=== PATIENT | female | born 2000 | race Two or more races ===

== ENCOUNTER 2025-07-19 23:07 | Emergency (ER) | payer MEDICAID, SELFPAY ==
[2025-07-19 23:19] VITALS: BP 110/75; PULSE 80; RESP 18; TEMP 36.4; O2SAT 99; BMI 23.6
[2025-07-19 23:36] VITALS: PULSE 88; RESP 18; O2SAT 98
--- NOTE | 2025-07-20 01:12 | EDNOTE_ITS ---
ED Wound/Laceration-RME/HPI General Chief Complaint: Wound/Laceration Stated Complaint: FALL Time Seen by Provider: 07/19/25 23:31 Arrival date/time: 07/19/25 23:07 RME / HPI RME / HPI narrative: DR. MADDOX MAIN ED EVALUATION: Patient presents after reportedly drinking alcohol throughout the day had apparently tripped and fell creating lower chin laceration. Denies malocclusion, although does complain of mild jaw pain. Denies VICENTE, neck pain, or UE/LE radiculopathy. PMH: Unremarkable PSH: Non-contributory Allergies: None Social: Positive Tobacco, Occasional Alcohol, Denies illicit drug abuse Related Data Previous Rx's ?Medication ?Instructions ?Recorded bacitracin zinc 500 unit/gram 1 applic topical TID #14 grams 07/20/25 topical ointment Allergies Allergy/AdvReac Type Severity Reaction Status Date / Time No Known Allergies Allergy Verified 07/07/19 21:24 Review of Systems Review of Systems Systems Reviewed: All systems reviewed, normal except as documented ED Exam Narrative Physical exam: GEN. APPEARANCE: The patient is inebriated, occasionally slurring speech although following simple commands, under no distress, lying down comfortably, does not look ill/toxic. Patient has good eye contact. Patient is cooperative. VITALS: All vitals were reviewed and the pulse ox is 99%, which is normal according to my interpretation HEENT: Normocephalic, atraumatic and nontender. Pupils are equal and reactive. Positive nystagmus. Oral mucosa is moist, without hemorrhage, no malocclusion, mild TTP along under-surface of chin, 4 cm full thickness laceration evident without active bleeding, NECK: Supple, no posterior mid-spinal tenderness, no meningismus, no JVD. There is no thyromegaly and no lymphadenopathy. CHEST: Nontender on palpation no deformity and no crepitus. CARDIOVASCULAR: Heart regular rhythm, no murmur or gallop rub or extra beats. LUNGS: Clear to auscultation bilaterally with symmetrical chest rise. No laboring tachypnea or wheezing. No intercostal subcostal retraction. No rales and no rhonchi. ABDOMEN: Soft, flat, nontender to palpation, no guarding or rebound tenderness. There are no abnormal masses palpated. No pulsatile masses or bruits. Active and normal bowel sounds. EXTREMITIES: Normal inspection and palpation. No edema. No cyanosis. Patient is able to move all 4 extremities well SKIN: Warm and dry, no rashes noted. MUSCULOSKELETAL: No lumbar or midline bony tenderness. There is no CVA tenderness. No paraspinal muscle spasm or tenderness. NEURO: Cranial nerves II through XII grossly intact. There are no focal neurologic deficits noted. Somulant, arousable, can follow simple commands. PSYCHIATRIC: Patient is in normal mood and affect, cooperative. LYMPHATICS: No major lymphadenopathy noted. Course Quality Measures none Vital Signs Vital signs: Vital Signs Temperature 97.5 F 07/19/25 23:19 Pulse Rate 80 07/19/25 23:19 Respiratory Rate 18 07/19/25 23:19 Blood Pressure 110/75 07/19/25 23:19 Pulse Oximetry (%) 99 07/19/25 23:19 Oxygen Delivery Method Room Air 07/19/25 23:19 Wound / Laceration MDM Narrative MDM Narrative:: Scribe Attestation: Rosanna Solano, rolan scribing for and in the presence of Dr. Maddox. Provider Notation: Although this document has been carefully reviewed, there may still be some phonetic and other typographical errors. These errors are purely grammatical due to imperfections in the software program and should not be construed in any way to compromise the substance of the patient's medical care during this visit. Patient presents after reportedly drinking alcohol throughout the day had apparently tripped and fell creating lower chin laceration. Denies malocclusion, although does complain of mild jaw pain. Please see PE findings. Patient observed for several hours and underwent chin laceration repair (please see Cora Cruz's laceration repair note). Patient became progressively more lucid and responsive. Recommended Bacitracin, cold compresses, and counseled in regard to excessive alcohol consumption, precautionary instructions issued. Patient data External records reviewed:: [facility] previous records (No recent ED records available for review) and EMS form Clinical information provided by:: patient and EMS Social determinants that could affect healthcare access:: alcohol use Patient has the following chronic illnesses:: None reported How is presenting disease/condition affected by chronic disease/condition?: no chronic disease Evaluation data The following diagnostics were reviewed and interpreted by me:: other (specify) (N/A) Lab and/or radiology exams considered but not ordered:: None Interpretation Summary: None Medications / Prescriptions Medications or Prescriptions considered but not ordered:: None Medication administrations:: See above if any Consultations Consultation(s) initiated? (list below): No Diagnosis Wound Differential Diagnosis: laceration, abrasion and avulsion of skin Most likely diagnosis given after review of the tests above:: Chin Laceration, Alcohol Intoxication Admission Indicated Admission indicated?: not indicated Explain why admission is indicated or not indicated:: Patient does not meet admission criteria Admission Request Was there a request for admission?: No Disposition Plan Disposition Plan: Discharge Discharge Attestation Discharge Attestation: The patient and all family members were given an opportunity to ask questions and understood the discharge instructions. Discharge instructions specifically effects, indications for sooner follow up or return to the emergency department, and the expected course of current diagnosis. Patient condition: Stable Discharge Plan Plan Patient Disposition: HOME (Self Care) Discharge Disposition comment: STABLE Prescriptions/Referrals Prescriptions/Med Rec: New bacitracin zinc 500 unit/gram ointment 1 applic topical TID Qty: 14 0RF Referrals: No Primary/Family,Physician [Primary Care Provider] - In 1 week Problem List Clinical Impression: Chin laceration, Alcohol intoxication Patient/Caregiver Discharge Instructions Discharge Activity: activity as tolerated Education Materials: Social Drinking vs Problem Drinking, ED Laceration, Face: Stitches or Tape Additional Instructions: Maintain head of bed elevation, ice compresses, topical bacitracin twice daily. Tylenol as needed for pain. Sutures out in 6 days and return if worsening. Print Language: Greenlandic Stand Alone Forms: Roxie Award Info., Patient Portal Info Letter
== END 2025-07-20 02:36 | disposition home or self-care (01) ==
PROVIDERS: Emergency Provider Emergency Medicine
DX: S01.81XA Laceration without foreign body of other part of head, initial encounter (principal); F10.129 Alcohol abuse with intoxication, unspecified; W01.0XXA Fall on same level from slipping, tripping and stumbling without subsequent striking against object, initial encounter; Y90.9 Presence of alcohol in blood, level not specified
CPT/HCPCS: 12011; 99281

== ENCOUNTER 2025-07-25 13:33 | Emergency (ER) | payer MEDICAID, SELFPAY ==
--- NOTE | 2025-07-25 13:44 | EDNOTE_ITS ---
ED Wound/Laceration-RME/HPI General Chief Complaint: Wound Recheck / Suture Removal Stated Complaint: Suture removal from chin Time Seen by Provider: 07/25/25 13:36 Arrival date/time: 07/25/25 13:33 24-year-old female presents to the emergency room today for encounter for suture removal. Limitations: no limitations Related Data Previous Rx's ?Medication ?Instructions ?Recorded bacitracin zinc 500 unit/gram 1 applic topical TID #14 grams 07/20/25 topical ointment cephalexin 500 mg capsule 500 mg PO BID 7 days #14 cap s 07/25/25 Allergies Allergy/AdvReac Type Severity Reaction Status Date / Time No Known Allergies Allergy Verified 07/25/25 13:36 Review of Systems Review of Systems Systems Reviewed: All systems reviewed, normal except as documented Constitutional Constitutional: Reports system reviewed and no additional complaints, except as documented, Denies fever(s) and Denies headache(s) Eyes Eyes: Reports system reviewed and no additional complaints, except as documented and Denies blurry vision ENT Ears, Nose, Mouth, and Throat: Reports system reviewed and no additional complaints, except as documented, Denies headache(s), Denies nasal congestion and Denies nasal discharge Cardiovascular Cardiovascular: Reports system reviewed and no additional complaints, except as documented, Denies chest pain and Denies dyspnea Respiratory Respiratory: Reports system reviewed and no additional complaints, except as documented, Denies chest congestion, Denies cough and Denies dyspnea Gastrointestinal Gastrointestinal: Reports system reviewed and no additional complaints, except as documented and Denies abdominal pain Integumentary/Breasts Skin/Breast: Reports system reviewed and no additional complaints, except as documented, Denies rash and Reports wounds (Laceration chin sutures in place) Neurologic Neurologic: Reports system reviewed and no additional complaints, except as documented, Reports as per HPI and Denies headache(s) Past Medical History Past Medical History CARDIAC: Negative Congestive Heart Failure RESPIRATORY: Negative Chronic Obstructive Pulmonary Disease (COPD) GENITOURINARY: Negative Renal Disease ENDOCRINE: Negative Diabetes Mellitus Type 1 or Diabetes Mellitus Type 2 PSYCHO/SOCIAL: Positive Attention Deficit Hyperactivity Disorder Social History SMOKING STATUS: Never smoker ED Exam General Limitations: Present no limitations General appearance: Present alert and in no apparent distress Expanded Head Exam Head image: [address] Eye Eye exam: Present normal appearance, PERRL and EOMI ENT ENT exam: Present normal exam, normal oropharynx and mucous membranes moist Neck Neck exam: Present normal inspection, full ROM and trachea midline Chest Chest inspection: Present normal inspection and symmetric chest wall rise Respiratory Respiratory exam: Present normal lung sounds bilaterally Cardiovascular Cardiovascular exam: Present regular rate, normal rhythm and normal heart sounds Abdominal Exam Abdominal exam: Present soft and normal bowel sounds Extremities Exam Extremities exam: Present normal inspection and full ROM Back Exam Back exam: Present normal inspection and full ROM Neurological Exam Neurological exam: Present alert, oriented X3 and CN II-XII intact Psychiatric Psychiatric exam: Present normal affect and normal mood Skin Skin exam: Present warm, dry, intact and normal color Course Quality Measures none Vital Signs Vital signs: Vital Signs Temperature 98.2 F 07/25/25 14:04 Pulse Rate 96 07/25/25 14:04 Respiratory Rate 18 07/25/25 14:04 Blood Pressure 107/64 07/25/25 14:04 Pulse Oximetry (%) 99 07/25/25 14:04 Oxygen Delivery Method Room Air 07/25/25 14:04 O2 saturation 99% room air within the limits PROCEDURES: Laceration Laceration 1: Site: face Size (cm): 4 Description: linear Depth: simple, single layer Local Anesthetic: lidocaine 1% Amount of anesthesia used (mL): 5 Pre-repair: wound explored and irrigated extensively Skin layer closed with: other (Prolene) Suture size (cm): 5-0 Number of sutures: 7 Technique: simple, interrupted Wound / Laceration MDM Narrative MDM Narrative:: 24-year-old female presents to the emergency room today for encounter for suture removal. I removed the sutures in their entirety, patient has a flap which is not aesthetically pleasing I showed my colleague Sherly who offered to revise the wound if patient wanted patient states understanding and would like the wound revised What is revised patient tolerated procedure well Patient data External records reviewed:: [facility] previous records Clinical information provided by:: patient Social determinants that could affect healthcare access:: none Patient has the following chronic illnesses:: None How is presenting disease/condition affected by chronic disease/condition?: no chronic disease Evaluation data The following diagnostics were reviewed and interpreted by me:: other (specify) Lab and/or radiology exams considered but not ordered:: Considered not ordered Interpretation Summary: N/A Medications / Prescriptions Medications or Prescriptions considered but not ordered:: Given Medication administrations:: Given Consultations Consultation(s) initiated? (list below): No Diagnosis Wound Differential Diagnosis: laceration, abrasion, avulsion of skin and other Most likely diagnosis given after review of the tests above:: Suture removal Admission Indicated Admission indicated?: not indicated Admission Request Was there a request for admission?: No Disposition Plan Disposition Plan: Discharge Discharge Attestation Discharge Attestation: The patient and all family members were given an opportunity to ask questions and understood the discharge instructions. Discharge instructions specifically effects, indications for sooner follow up or return to the emergency department, and the expected course of current diagnosis. Patient condition: Stable Discharge Plan Plan Patient Disposition: HOME (Self Care) Discharge Disposition comment: Stable Prescriptions/Referrals Prescriptions/Med Rec: New cephalexin 500 mg capsule 500 mg PO BID 7 Days Qty: 14 0RF No Action bacitracin zinc 500 unit/gram ointment 1 applic topical TID Qty: 14 0RF Problem List Clinical Impression: Encounter for removal of sutures Patient/Caregiver Discharge Instructions Education Materials: ED Stitches/Staple Removal No ... Additional Instructions: Please follow up with your primary care doctor in the next 24-48hrs for any worsening symptoms return here immediately Please have sutures removed in 7 days Print Language: Romanian Stand Alone Forms: Roxie Award Info., Patient Portal Info Letter PA/SALES ENABLEMENT LEAD Supervising Physician PA/JOSE Supervising Physician: Dr. Tamez
[2025-07-25 14:04] VITALS: BP 107/64; PULSE 96; RESP 18; TEMP 36.8; O2SAT 99
== END 2025-07-25 15:18 | disposition home or self-care (01) ==
LOC: SERX 15:07
PROVIDERS: Emergency Provider Emergency Medicine; PCP Internal Medicine
DX: Z48.02 Encounter for removal of sutures (principal)
CPT/HCPCS: 99281

== ENCOUNTER 2025-08-01 13:25 | Emergency (ER) | payer MEDICAID, SELFPAY ==
[2025-08-01 13:26] VITALS: BMI 25.8
[2025-08-01 13:44] VITALS: BP 111/70; PULSE 91; RESP 19; TEMP 36.6; O2SAT 100
--- NOTE | 2025-08-01 13:55 | EDNOTE_ITS ---
ED Wound/Laceration-RME/HPI General Chief Complaint: Wound Recheck / Suture Removal Stated Complaint: NEED STITCHES REMOVED FROM CHIN Time Seen by Provider: 08/01/25 13:28 Source: patient Arrival date/time: 08/01/25 13:25 24-year-old female with no known medical history presents to the emergency room to get her sutures removed from her chin Mode of arrival: ambulatory Limitations: no limitations Related Data Previous Rx's ?Medication ?Instructions ?Recorded bacitracin zinc 500 unit/gram 1 applic topical TID #14 grams 07/20/25 topical ointment Allergies Allergy/AdvReac Type Severity Reaction Status Date / Time No Known Allergies Allergy Verified 08/01/25 13:27 Review of Systems Review of Systems Systems Reviewed: All systems reviewed, normal except as documented Constitutional Constitutional: Reports system reviewed and no additional complaints, except as documented, Denies fatigue, Denies fever(s), Denies headache(s) and Denies weakness Eyes Eyes: Reports system reviewed and no additional complaints, except as documented, Denies blurry vision and Denies change in vision ENT Ears, Nose, Mouth, and Throat: Reports system reviewed and no additional complaints, except as documented, Denies otalgia, Denies headache(s), Denies nasal congestion, Denies throat swelling and Denies vertigo Cardiovascular Cardiovascular: Reports system reviewed and no additional complaints, except as documented, Denies chest pain, Denies dyspnea and Denies dyspnea on exertion Respiratory Respiratory: Reports system reviewed and no additional complaints, except as documented, Denies chest congestion, Denies cough, Denies dyspnea, Denies dyspnea on exertion and Denies wheezing Gastrointestinal Gastrointestinal: Reports system reviewed and no additional complaints, except as documented, Denies abdominal pain, Denies cramping, Denies nausea and Denies vomiting Genitourinary Genitourinary: Reports system reviewed and no additional complaints, except as documented Musculoskeletal Musculoskeletal: Reports system reviewed and no additional complaints, except as documented and Denies back pain Integumentary/Breasts Skin/Breast: Reports system reviewed and no additional complaints, except as documented and Denies wounds Neurologic Neurologic: Reports system reviewed and no additional complaints, except as documented, Denies confusion, Denies headache(s), Denies lack of coordination, Denies vertigo and Denies weakness Psychiatric Psychiatric: Reports system reviewed and no additional complaints, except as do cumented, Denies anxiety, Denies confusion, Denies depression, Denies paranoia, Denies suicidal ideation and Denies tactile hallucinations Endocrine Endocrine: Reports system reviewed and no additional complaints, except as documented and Denies fatigue Hematologic/Lymphatic Hematologic/Lymphatic: Reports system reviewed and no additional complaints, except as documented and Denies lymphadenopathy Allergic/Immunologic Allergic/Immunologic: Reports system reviewed and no additional complaints, except as documented, Denies throat swelling, Denies urticaria and Denies wheezing Past Medical History Past Medical History CARDIAC: Negative Congestive Heart Failure RESPIRATORY: Negative Chronic Obstructive Pulmonary Disease (COPD) GENITOURINARY: Negative Renal Disease ENDOCRINE: Negative Diabetes Mellitus Type 1 or Diabetes Mellitus Type 2 PSYCHO/SOCIAL: Positive Attention Deficit Hyperactivity Disorder Social History SMOKING STATUS: Never smoker ED Exam General Limitations: Present no limitations General appearance: Present alert and in no apparent distress Head Head exam: Present atraumatic Eye Eye exam: Present normal appearance, PERRL and EOMI ENT ENT exam: Present normal exam, normal oropharynx and mucous membranes moist Neck Neck exam: Present normal inspection, full ROM and trachea midline Chest Chest inspection: Present normal inspection and symmetric chest wall rise Respiratory Respiratory exam: Present normal lung sounds bilaterally Cardiovascular Cardiovascular exam: Present regular rate, normal rhythm and normal heart sounds Abdominal Exam Abdominal exam: Present soft and normal bowel sounds Extremities Exam Extremities exam: Present normal inspection and full ROM Back Exam Back exam: Present normal inspection and full ROM Neurological Exam Neurological exam: Present alert, oriented X3 and CN II-XII intact Psychiatric Psychiatric exam: Present normal affect and normal mood Skin Skin exam: Present warm, dry, intact and normal color Course Quality Measures none Vital Signs Vital signs: Vital Signs Temperature 97.8 F 08/01/25 13:44 Pulse Rate 91 08/01/25 13:44 Respiratory Rate 19 08/01/25 13:44 Blood Pressure 111/70 08/01/25 13:44 Pulse Oximetry (%) 100 08/01/25 13:44 Oxygen Delivery Method Room Air 08/01/25 13:44 Wound / Laceration MDM Narrative MDM Narrative:: 24-year-old female with no known medical history presents to the emergency room to get her sutures removed from her chin Patient is hemodynamically stable and in no apparent distress 7 sutures removed from the patient's chin with no complications. There is no signs of any infection. Patient was discharged and educated to follow-up with primary care provider in the next 24 to 48 hours and return to the emergency room for any evidence of worsening signs or symptoms Patient data External records reviewed:: [facility] previous records Clinical information provided by:: patient Social determinants that could affect healthcare access:: none Patient has the following chronic illnesses:: No chronic illness How is presenting disease/condition affected by chronic disease/condition?: no chronic disease Evaluation data The following diagnostics were reviewed and interpreted by me:: lab results and radiology exam(s) Lab and/or radiology exams considered but not ordered:: Labs and radiology exams considered and ordered Interpretation Summary: N/A Medications / Prescriptions Medications or Prescriptions considered but not ordered:: No medication given Medication administrations:: No medication given Consultations Consultation(s) initiated? (list below): No Diagnosis Wound Differential Diagnosis: other (Suture removal) Most likely diagnosis given after review of the tests above:: Suture removal Admission Indicated Admission indicated?: not indicated Admission Request Was there a request for admission?: No Disposition Plan Disposition Plan: Discharge Discharge Attestation Discharge Attestation: The patient and all family members were given an opportunity to ask questions and understood the discharge instructions. Discharge instructions specifically effects, indications for sooner follow up or return to the emergency department, and the expected course of current diagnosis. Patient condition: Stable Discharge Plan Plan Patient Disposition: HOME (Self Care) Discharge Disposition comment: Stable Prescriptions/Referrals Prescriptions/Med Rec: No Action bacitracin zinc 500 unit/gram ointment 1 applic topical TID Qty: 14 0RF Problem List Clinical Impression: Encounter for removal of sutures Patient/Caregiver Discharge Instructions Education Materials: Suture Care Additional Instructions: Your sutures were removed with no complications For any evidence of worsening signs or symptoms return to emergency room immediately Print Language: German Stand Alone Forms: Roxie Award Info., Patient Portal Info Letter PA/ELEMENTARY ASSISTANT PRINCIPAL Supervising Physician PA/ELEMENTARY ASSISTANT PRINCIPAL Supervising Physician: Dr. Pillai
== END 2025-08-01 16:16 | disposition home or self-care (01) ==
LOC: SERX 15:16
PROVIDERS: Emergency Provider Nurse Practitioner Family
DX: S01.81XD Laceration without foreign body of other part of head, subsequent encounter (principal); X58.XXXD Exposure to other specified factors, subsequent encounter
CPT/HCPCS: 99281